=== PATIENT | female | born 1980 | race Caucasian/White ===

== ENCOUNTER 2021-11-05 06:52 | Day surgery (SDC) | payer MEDICARE, OTHER ==
[~2021-11-05] VITALS: Ht 172.7 cm; Wt 112.5 kg
[2021-11-05] VITALS (7 sets, daily range): BP systolic 119–151; BP diastolic 72–88
--- NOTE | 2021-11-05 08:47 | NUR ---
ARRIVAL PRESENTED TO ED RM#7 AMBULATORY WITH C/O BILATERAL FLANK PAIN. PAIN 5/10, RADIATES TO LOWER ABD. VS OBTAINED. DR. SALES NOTIFIED OF PATIENT ARRIVAL.
--- NOTE | 2021-11-05 09:32 | ER.PDOC ---
General Chief Complaint: Requesting Medical Care Stated Complaint: ABD PAIN Time seen by MD: 09:31 Source: patient Exam Limitations: no limitations History of Present Illness Initial Comments Left flank pain for 3 weeks. Patient was seen in a hospital in [place] and stent placed for ureteral stone. Severity/Quality: moderate, sharpness Radiation: LLQ Associated Symptoms: denies symptoms Exacerbated by: nothing Relieved By: nothing Past Medical History Medical History: no pertinent history Surgical History: no surgical history Family History Significant Family History: no pertinent family hx Social History Smoking: non-smoker Alcohol Use: none Drug Use: none Constitutional: no symptoms reported EENTM: no symptoms reported Respiratory: no symptoms reported Cardiovascular: no symptoms reported Gastrointestinal: see HPI Genitourinary: see HPI All Other Systems: Reviewed and Negative Physical Exam General Appearance: No Apparent Distress, WD/WN HEENT: PERRL/EOMI, Normal ENT Inspection, TMs Normal, Pharynx Normal Neck: Non-Tender, Full Range of Motion, Supple, Normal Inspection Respiratory: chest non-tender, lungs clear, normal breath sounds, no respiratory distress, no accessory muscle use Cardiovascular: Normal Peripheral Pulses, Regular Rate, Rhythm, No Edema, No Gallop, No JVD, No Murmur Gastrointestinal: Normal Bowel Sounds, No Organomegaly, No Pulsatile Mass, Guarding, Tenderness (LLQ) Back: Normal Inspection, No CVA Tenderness, No Vertebral Tenderness Extremities: Normal Range of Motion, Non-Tender, Normal Inspection, No Pedal Edema, No Calf Tenderness, Normal Capillary Refill, Pelvis Stable 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 (11/05/21 09:28) Urinalysis (11/05/21 09:28) Ct Abd/Pelvis Wo Iv Contrast (11/05/21 09:28) Covid19 Antigen Courtney Renuka (11/05/21 09:30) Hcg Urine (11/05/21 09:30) Ringer's Solution,Lactated (Lactated Rin (11/05/21 09:47) Levetiracetam 500mg/100 Nacl (Keppra) (11/05/21 09:47) Urine Culture (11/05/21 09:00) Laboratory Tests Test 11/05/21 09:00 White Blood Count 7.1 10^3/uL (4.5-11.0) Red Blood Count 4.46 10^6/uL (4.00-5.20) Hemoglobin 13.6 g/dL (12.0-15.0) Hematocrit 40.4 % (36.0-46.0) Mean Corpuscular Volume 90.6 fL (78-100) Mean Corpuscular Hemoglobin 30.5 pg (26-34) Mean Corpuscular Hemoglobin Concent 33.7 g/dL (33-36.5) Red Cell Distribution Width 11.9 % (11.5-14.5) Platelet Count 247 10^3/uL (150-400) Mean Platelet Volume 10.2 fL (7.8-11.0) Neutrophils (%) (Auto) 58.4 % (41.0-85.0) Lymphocytes (%) (Auto) 32.3 % (24.0-44.0) Monocytes (%) (Auto) 4.8 % (5.0-12.0) L Neutrophils # (Auto) 4.2 10^3/uL (1.8-7.7) Lymphocytes # (Auto) 2.30 10^3/uL1 (1.0-4.8) Monocytes # (Auto) 0.3 10^3/uL (0.3-0.8) Absolute Immature Granulocyte (auto 0.02 10^3 u/L (0-2) Absolute Eosinophils (auto) 0.2 10^3/uL (0.0-0.2) Immature Granulocytes % 0.30 % (0.00-0.50) Eosinophils % 3.4 % (0.0-5.0) Basophils % 0.8 % (0.0-0.2) H Basophils # 0.1 10^3/uL (0.0-0.1) Urine Collection Type RANDOM Urine Color YELLOW Urine Appearance CLOUDY Urine Bilirubin NEGATIVE (NEGATIVE) Urine Ketones NEGATIVE (NEGATIVE) Urine Specific Henrietta 1.015 (1.005-1.030) Urine pH 6.0 (4.5-8.0) Urine Protein NEGATIVE (NEGATIVE) Urine Urobilinogen 0.2 E.U./dL (0.2) Urine Nitrate NEGATIVE (NEGATIVE) Urine Leukocyte Esterase 1+ (NEGATIVE) H Urine Glucose (Auto)(UA) NEGATIVE (NEGATIVE) Urine Blood TRACE-INTACT (NEGATIVE) H Urine RBC 2-5 RBC/HPF (NONE SEEN) Urine WBC 5-10 WBC/HPF (0-2) H Urine Squamous Epithelial Cells MANY (<=FEW) Urine Calcium Oxalate Crystals FEW (NONE SEEN) A Urine Bacteria MANY (NONE SEEN) H Urine Yeast FEW (NONE SEEN) Urine HCG, Qualitative NEGATIVE (NEGATIVE) Progress Progress CT abd/pelvis: Left ureteral stent appears to be in good position, given the lima m hardening artifact limiting evaluation of pelvis. The multiple bilateral renal collecting system calculi, without hydronephrosis. ER DEPART Departure Time of Disposition: 10:05 Disposition: 09 ADMITTED INPATIENT Impression: Primary Impression: S/P ureteral stent placement Additional Impression: UTI (urinary tract infection) Condition: Stable Referrals: PCP,UNKNOWN (PCP) PRIMARY CARE PROVIDER Comments Patient taken to the OR by Dr. Sánchez Duration or Time Spent with Pa: 30 min Problem Qualifiers Additional Impression: UTI (urinary tract infection) Urinary tract infection type: site unspecified Hematuria presence: with hematuria Qualified Codes: N39.0 - Urinary tract infection, site not specified; R31.9 - Hematuria, unspecified MENDEZ SALES MD November 05, 2021 09:32
[2021-11-05 09:41] LABS: BILIRUBIN,URINE NEGATIVE (NEGATIVE); UROBILINOGEN,URINE 0.2 E.U./dL (0.2)
[2021-11-05] MEDS ORDERED: LACTATED RINGERS 1,000 ML ONE (09:47)
[2021-11-05] MEDS ORDERED: KEPPRA 100 ML IV ONE (09:47)
[2021-11-05 09:53] LABS: YEAST,URINE FEW (NONE SEEN)
--- NOTE | 2021-11-05 09:58 | DIREP ---
PROCEDURE:CT ABDOMEN/PELVIS W/O CONTRAST COMPARISON:None. INDICATIONS:Left flank pain TECHNIQUE:Axial images were created through the abdomen and pelvis without intravenous contrast material. No oral contrast was administered. Sagittal and coronal reconstructions were performed from source images. FINDINGS: LUNG BASES:Normal. No visible pulmonary or pleural disease. LIVER:Normal. No significant liver lesions are identified. BILIARY:Cholecystectomy PANCREAS:Normal. No lesion, fluid collection, ductal dilatation, or atrophy. SPLEEN:Normal. No enlargement or focal lesion. ADRENALS:Normal. No mass or enlargement. URINARY TRACT:No right-sided hydronephrosis. Multiple renal calculi, largest measuring 1.6 cm in size. Left ureteral stent in position, without hydronephrosis. There are multiple collecting system calculi, largest measuring 4-5 mm. The lower portion of the ureter is obscured by beam hardening artifact arising from bilateral total hip replacements. AORTA/VASCULAR:Normal. No aneurysm. RETROPERITONEUM:Normal. No mass or adenopathy. BOWEL/MESENTERY:Bariatric surgical changes. No free air. No evidence of bowel obstruction. No suspected abscess. ABDOMINAL WALL:Normal. No mass or hernia. PELVIC ORGANS:Normal. No visible mass. Pelvic organs appropriate for patient age. BONES:Normal for age. No bony lesion or acute fracture. OTHER:Negative. CONCLUSION:Left ureteral stent appears to be in good position, given the beam hardening artifact limiting evaluation of pelvis. The multiple bilateral renal collecting system calculi, without hydronephrosis. Dictated by: Claudy Seymour MD on 11/05/2021 at 09:53 AM
[2021-11-05] MEDS ORDERED: LACTATED RINGERS 1,000 ML IV SCH ×2 (10:00→12:30)
--- NOTE | 2021-11-05 10:00 | NUR ---
OR TRANSPORTED TO OR IN WHEELCHAIR BY OR STAFF.
[2021-11-05 10:01] LABS: BASOPHIL # 0.1 10^3/uL (0.0-0.1); BASOPHIL % 0.8 % (0.0-0.2); EOSINOPHIL # 0.2 10^3/uL (0.0-0.2); EOSINOPHIL % 3.4 % (0.0-5.0); LYMPHOCYTES % 32.3 % (24.0-44.0); MEAN CORP HGB 30.5 pg (26-34); MONOCYTES # 0.3 10^3/uL (0.3-0.8); MONOCYTES % 4.8 % (5.0-12.0); NEUTROPHIL # 4.2 10^3/uL (1.8-7.7); NEUTROPHILS % 58.4 % (41.0-85.0); PLATELET COUNT 247 10^3/uL (150-400); RED CELL DISTRIBUTION WIDTH 11.9 % (11.5-14.5)
[2021-11-05 10:26] LABS: CARBON DIOXIDE 28.7 mmol/L (20.0-32)
[2021-11-05] MEDS ORDERED: OMEP40CA8 PO (10:43)
[2021-11-05] MEDS ORDERED: LEVO75TA6 PO (10:43)
[2021-11-05] MEDS ORDERED: BUPR150T23 PO (10:43)
[2021-11-05] MEDS ORDERED: AMIT150T PO (10:43)
[2021-11-05] MEDS ORDERED: TIZA-113 PO (10:43)
[2021-11-05] MEDS ORDERED: TOPI100T8 PO (10:43)
[2021-11-05] MEDS ORDERED: [UNRECOGNIZED DRUG - OTHER] PO (10:43)
[2021-11-05] MEDS ORDERED: TRANSDERM-SCOP TD ONE ×2 (11:21→12:00)
[2021-11-05] MEDS ORDERED: ZOFRAN ONE (11:44)
[2021-11-05] MEDS ORDERED: XYLOCAINE 2% 5ML VIAL ONE (11:44)
[2021-11-05] MEDS ORDERED: DECADRON ONE (11:44)
[2021-11-05] MEDS ORDERED: SUBLIMAZE ONE (11:45)
[2021-11-05] MEDS ORDERED: DIPRIVAN IV ONE (11:45)
[2021-11-05] MEDS ORDERED: LASIX IV ONE (12:15)
[2021-11-05] MEDS ORDERED: LASIX ONE (12:21)
[2021-11-05] MEDS ORDERED: TAMS-14 PO (12:24)
[2021-11-05] MEDS ORDERED: TRAM50TA PO (12:24)
[2021-11-05] MEDS ORDERED: CIPR500T86 PO (12:24)
--- NOTE | 2021-11-05 12:54 | OPH ---
DATE OF SURGERY: 11/05/2021 DICTATOR NAME: Jose Sánchez MD PREOPERATIVE DIAGNOSIS: Left renal calculi. FINAL DIAGNOSIS: Left renal calculi. PROCEDURE: Left ESWL. DESCRIPTION OF PROCEDURE: The patient was brought to the lithotripsy room, was put in supine position on the lithotripsy table. A left preop renal ultrasound was initially performed, which revealed a calculi in the left kidney with an indwelling stent. After the patient was given an LMA general anesthesia and after localization of the stone with the use of fluoroscopy and renal ultrasound, a left ESWL was then performed using a Dornier Compact Delta II lithotripter. A total of 1500 shockwaves were delivered to the stones in the left kidney under ultrasound guidance. After fragmentation of the stone as noted in the ultrasound, the procedure was terminated. The patient was awakened, was transferred to the recovery room in stable condition. Jose Sánchez MD DR: KEVAN/THEODORA TID: [id number] RECEIPT: [id number]
== END 2021-11-05 13:35 | disposition home or self-care (01) ==
LOC: ER 06:52 → SDC 10:06
PROVIDERS: ATTEND Urology
DX: N20.0 Calculus of kidney (principal); R31.9 Hematuria, unspecified; N39.0 Urinary tract infection, site not specified; M19.90 Unspecified osteoarthritis, unspecified site; Z79.01 Long term (current) use of anticoagulants; Z98.890 Other specified postprocedural states; Z98.891 History of uterine scar from previous surgery; Z98.84 Bariatric surgery status; Z90.89 Acquired absence of other organs
CPT/HCPCS: 36415; 50590; 74176; 80053; 81001; 81025; 85025; 85610; 85730; 87086; 87426; 99285; J1100; J2001; J2405; J3010; J3490; J7120 ×2; J1940; J1953

== ENCOUNTER 2021-11-10 08:21 | Day surgery (SDC) | payer MEDICARE ==
[~2021-11-10] VITALS: Ht 172.7 cm; Wt 112.5 kg
[~2021-11-10 08:21] MED LIST: AMIT150T PO; BUPR150T23 PO; CIPR500T86 PO; D5W-1/2NS 1000ML 1,000 ML ONE; LEVAQUIN 100 ML IV ONE; LEVO75TA6 PO; NS 3000ML IRR IR ONE; OMEP40CA8 PO; TAMS-14 PO; TIZA-113 PO; TOPI100T8 PO; TRAM50TA PO; [UNRECOGNIZED DRUG - OTHER] PO
[2021-11-10] MEDS ORDERED: TRANSDERM-SCOP TD ONE ×2 (08:30→08:54)
[2021-11-10] MEDS ORDERED: D5NS 1,000 ML IV ONE (09:00)
[2021-11-10] MEDS ORDERED: DECADRON ONE (10:23)
[2021-11-10] MEDS ORDERED: ZOFRAN ONE (10:23)
[2021-11-10] MEDS ORDERED: TORADOL ONE (10:23)
[2021-11-10] MEDS ORDERED: XYLOCAINE 2% 5ML VIAL ONE (10:23)
[2021-11-10] MEDS ORDERED: DIPRIVAN IV ONE (10:24)
[2021-11-10] MEDS ORDERED: SUBLIMAZE ONE (10:24)
[2021-11-10 10:49] VITALS: BP 116/70
[2021-11-10 10:59] VITALS: BP 117/70
[2021-11-10] MEDS ORDERED: LACTATED RINGERS 1,000 ML IV SCH (11:00)
[2021-11-10 11:10] VITALS: BP 121/72
[2021-11-10 11:15] VITALS: BP 120/70
--- NOTE | 2021-11-10 14:21 | OPH ---
DATE OF SURGERY: 11/10/2021 DICTATOR NAME: Jose Sánchez MD PREOPERATIVE DIAGNOSIS: Left renal calculus with an indwelling stent, status post extracorporeal shock wave lithotripsy. FINAL DIAGNOSIS: Left renal calculus with an indwelling stent, status post extracorporeal shock wave lithotripsy. PROCEDURES: Cystoscopy, removal of left ureteral stent with left ureteroscopy. DESCRIPTION OF PROCEDURE: The patient was brought to the cystoscopy room, was put in supine position on the cystoscopy table. After the patient was given a satisfactory and adequate LMA general anesthesia, the patient was placed in the lithotomy position. Genitalia was then prepped and draped aseptically in the usual manner. First, 23-Andorran cystoscope inserted per urethra up to the bladder. With use of the right angle lens, the bladder was visualized. No tumor, no calculi, no ulcerations seen. There was a presence of left ureteral stent and this was removed and replaced with a Glidewire. The cystoscope was then removed and a 7-Andorran semirigid ureteroscope was inserted per urethra up to the bladder and inserted into the left ureteral orifice all the way to the kidney which revealed no evidence of ureteral stone; the ureteroscope and the Glidewire was then removed and the cystoscope was reinserted into the bladder. Bladder was emptied with fluid. Procedure was terminated. The instrument was removed. The patient was then awakened, was transferred to the recovery room in stable condition. Jose Sánchez MD DR: ROXANNA TID: [id number] RECEIPT: [id number] MTDD
--- NOTE | 2021-11-10 14:46 | DIREP ---
PROCEDURE:XRAY FLUOROSCOPY COMPARISON:None. INDICATIONS:STONE TECHNIQUE:Fluoroscopic assistance during removal of left ureteral stent. Five images. Fluoroscopy time less than 15 minutes. FINDINGS:Left ureteral stent removal. Bilateral hip arthroplasty screws. CONCLUSION:Left ureteral stent removal. Dictated by: Star Chase M.D. on 11/10/2021 at 01:26 PM Read in [place]
== END 2021-11-10 11:25 | disposition home or self-care (01) ==
LOC: SDC 08:21
PROVIDERS: ATTEND Urology
DX: Z46.6 Encounter for fitting and adjustment of urinary device (principal); N20.0 Calculus of kidney; M79.7 Fibromyalgia; E03.9 Hypothyroidism, unspecified; M05.40 Rheumatoid myopathy with rheumatoid arthritis of unspecified site; I25.10 Atherosclerotic heart disease of native coronary artery without angina pectoris; Z79.01 Long term (current) use of anticoagulants; Z79.899 Other long term (current) drug therapy; Z90.49 Acquired absence of other specified parts of digestive tract; Z98.84 Bariatric surgery status; Z98.890 Other specified postprocedural states
CPT/HCPCS: 52310; A4217; J1100; J1885; J1956; J2001; J2405; J3010; J3490; 76000; C1769

== ENCOUNTER 2021-11-26 06:24 | Day surgery (SDC) | payer MEDICARE ==
[~2021-11-26] VITALS: Ht 172.7 cm; Wt 112.5 kg
[~2021-11-26 06:24] MED LIST changes: -D5W-1/2NS 1000ML 1,000 ML ONE; +LASIX IV ONE; -LEVAQUIN 100 ML IV ONE; +NS 1000ML 1,000 ML IV SCH; +NS 1000ML 1,000 ML ONE; -NS 3000ML IRR IR ONE
[2021-11-26] MEDS ORDERED: TRANSDERM-SCOP TD ONE (07:15)
[2021-11-26] MEDS ORDERED: ZOFRAN ONE (07:31)
[2021-11-26] MEDS ORDERED: LIDOCAINE 1% VIAL ONE (07:31)
[2021-11-26] MEDS ORDERED: DECADRON ONE (07:32)
[2021-11-26] MEDS ORDERED: SUBLIMAZE ONE (07:32)
[2021-11-26] MEDS ORDERED: DIPRIVAN IV ONE (07:33)
[2021-11-26] MEDS ORDERED: LASIX ONE (08:25)
[2021-11-26 08:51] VITALS: BP 144/80
[2021-11-26] MEDS ORDERED: LACTATED RINGERS 1,000 ML ONE (08:53)
[2021-11-26 09:00] VITALS: BP 131/77
[2021-11-26] MEDS ORDERED: LACTATED RINGERS 1,000 ML IV SCH (09:00)
[2021-11-26 09:10] VITALS: BP 128/69
[2021-11-26 09:20] VITALS: BP 126/70
[2021-11-26 09:21] VITALS: BP 119/73
[2021-11-26 09:35] VITALS: BP 122/66
--- NOTE | 2021-11-26 11:54 | OPH ---
DATE OF SURGERY: 11/26/2021 DICTATOR NAME: Jose Sánchez MD PREOPERATIVE DIAGNOSIS: Right renal calculi. FINAL DIAGNOSIS: Right renal calculi. PROCEDURE: Right ESWL. DESCRIPTION OF PROCEDURE: The patient was brought to the lithotripsy room, was put in supine position on the lithotripsy table. A preoperative right renal ultrasound was initially performed, which revealed 2 large stones in the lower pole of the right kidney, measuring 1.14 cm and 1.62 cm in diameter respectively. There is no evidence of hydronephrosis or obstruction. After the patient was given an LMA general anesthesia and after localization of the stone with the use of an ultrasound and fluoroscopy, a right ESWL was then performed using a Dornier Compact Delta II lithotripter. A total of 2500 shockwaves were delivered to the stones in the lower pole of the right kidney under ultrasound guidance. After fragmentation of the stone as noted in the ultrasound and fluoroscopy, the procedure was terminated. The patient was awakened, was transferred to the recovery room in stable condition. Jose Sánchez MD DR: KEVAN/MARTHA TID: [id number] RECEIPT: [id number]
[2021-12-01] MEDS ORDERED: TRAM50TA PO (15:30)
[2021-12-01] MEDS ORDERED: CIPR500T86 PO (15:30)
== END 2021-11-26 10:00 | disposition home or self-care (01) ==
LOC: SDC 06:24
PROVIDERS: ATTEND Urology
DX: N20.0 Calculus of kidney (principal); M79.7 Fibromyalgia; K21.9 Gastro-esophageal reflux disease without esophagitis; E03.9 Hypothyroidism, unspecified; M05.40 Rheumatoid myopathy with rheumatoid arthritis of unspecified site; Z98.890 Other specified postprocedural states; Z95.0 Presence of cardiac pacemaker; Z90.49 Acquired absence of other specified parts of digestive tract; Z98.84 Bariatric surgery status
CPT/HCPCS: 50590; 81025; J1100; J2001; J2405; J3010; J3490; J7030; J7120; J1940

== ENCOUNTER → 2021-12-01 | Day surgery (SDC) | payer MEDICARE ==
[~2021-12-01] VITALS: Ht 172.7 cm; Wt 117.9 kg
[~2021-12-01] MED LIST changes: +DECADRON ONE; +DIPRIVAN IV ONE; +LACTATED RINGERS 1,000 ML IV SCH; +LACTATED RINGERS 1,000 ML ONE; -LASIX IV ONE; +LEVAQUIN 100 ML IV ONE; -NS 1000ML 1,000 ML ONE; +NS 3000ML IRR IR ONE; +SODIUM CHLORIDE IRR BOTTLE IR ONE; +SUBLIMAZE ONE; +TORADOL IV STA; +TORADOL ONE; +ZOFRAN IV STA; +ZOFRAN ONE
[2021-12-01 13:43] LABS: BASOPHIL % 0.5 % (0.0-0.2); EOSINOPHIL # 0.1 10^3/uL (0.0-0.2); EOSINOPHIL % 2.1 % (0.0-5.0); LYMPHOCYTES # 0.98 10^3/uL1 (1.0-4.8); LYMPHOCYTES % 14.8 % (24.0-44.0); MEAN CORP HGB 30.4 pg (26-34); MONOCYTES # 0.3 10^3/uL (0.3-0.8); MONOCYTES % 3.8 % (5.0-12.0); NEUTROPHIL # 5.2 10^3/uL (1.8-7.7); NEUTROPHILS % 78.3 % (41.0-85.0); PLATELET COUNT 225 10^3/uL (150-400)
[2021-12-01 13:46] VITALS: BP 125/71
--- NOTE | 2021-12-01 13:56 | NUR ---
Ambulatory to ED4. A/O, able to communicate needs, follows commands. Pt sent by Dr. Liriano for eval due to Rflank pain with recent history of multiple kidney stone with interventions required.Pt rates pain 5/10 to R flank, described as sharp, constant.
--- NOTE | 2021-12-01 14:44 | ER.PDOC ---
General Chief Complaint: Requesting Medical Care Stated Complaint: KIDNEY PAIN Time seen by MD: 14:40 Source: patient Exam Limitations: no limitations History of Present Illness Initial Comments Right flank pain for the last few days. She had a kidney stone blasted in the right kidney and is having right flank pain from a piece of stone in the right ureter. Severity/Quality: moderate, sharpness Radiation: no radiation Associated Symptoms: denies symptoms Exacerbated by: nothing Relieved By: nothing Allergies: Coded Allergies: No Known Allergies (Unverified , 11/05/21) Home Meds Active Scripts Tramadol Hcl (TRAMADOL HCL) 50 Mg Tablet, 50 MG PO Q6 PRN for PAIN, #20 TABLET Prov:LELA VILLELA MD 11/05/21 Tamsulosin Hcl (FLOMAX) 0.4 Mg Cap.er.24h, 0.4 MG PO DAILY24, #20 CAPSULE Prov:LELA VILLELA MD 11/05/21 Reported Medications [Bariatic Vitamin] No Conflict Check, 1 MG PO DAILY24 11/05/21 Omeprazole (OMEPRAZOLE) 40 Mg Capsule.dr, 1 CAP PO DAILY, #30 CAP 3 Refills 11/05/21 Amitriptyline Hcl (AMITRIPTYLINE HCL) 150 Mg Tablet, 1 TAB PO HS, #30 TAB 1 Refill 11/05/21 Levothyroxine Sodium (LEVOTHYROXINE SODIUM) 75 Mcg Tablet, 1 TAB PO DAILY, #30 TAB 5 Refills 11/05/21 Topiramate (TOPIRAMATE) 100 Mg Tablet, 1 TAB PO BID for 30 Days, #60 TAB 0 Refills 11/05/21 Tizanidine Hcl (TIZANIDINE HCL) 4 Mg Tablet, 1 TAB PO TID, #90 TAB 11/05/21 Bupropion Hcl (BUPROPION XL) 150 Mg Tab.er.24h, 1 TAB PO BID, #30 TAB 11/05/21 Discontinued Scripts Ciprofloxacin Hcl (CIPRO) 500 Mg Tablet, 500 MG PO BID, #14 Prov:LELA VILLELA MD 11/05/21 Vital Signs First Vital Signs Date Time Temp Pulse Resp B/P (MAP) Pulse Ox O2 Delivery O2 Flow Rate FiO2 12/01/21 13:46 98.3 95 18 99 12/01/21 13:46 Room Air* 0 21 Last Vital Signs Date Time Temp Pulse Resp B/P (MAP) Pulse Ox O2 Delivery O2 Flow Rate FiO2 12/01/21 13:46 98.3 95 18 12/01/21 13:46 99 Room Air* 0 21 Past Medical History Medical History: other Surgical History: , hip, tonsillectomy, other Family History Significant Family History: no pertinent family hx Social History Smoking: non-smoker Alcohol Use: none Drug Use: none Constitutional: no symptoms reported EENTM: no symptoms reported Respiratory: no symptoms reported Cardiovascular: no symptoms reported Gastrointestinal: no symptoms reported Genitourinary: see HPI All Other Systems: Reviewed and Negative Physical Exam General Appearance: No Apparent Distress, WD/WN HEENT: PERRL/EOMI, Normal ENT Inspection, TMs Normal, Pharynx Normal Neck: Non-Tender, Full Range of Motion, Supple, Normal Inspection Respiratory: chest non-tender, lungs clear, normal breath sounds, no respiratory distress, no accessory muscle use Cardiovascular: Normal Peripheral Pulses, Regular Rate, Rhythm, No Edema, No Gallop, No JVD, No Murmur Gastrointestinal: Normal Bowel Sounds, No Organomegaly, No Pulsatile Mass, Tenderness (RLQ) Back: Normal Inspection, No CVA Tenderness, No Vertebral Tenderness Extremities: Normal Range of Motion, Non-Tender, Normal Inspection, No Pedal Edema, No Calf Tenderness, Normal Capillary Refill, Pelvis Stable 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, No Motor/Sensory Deficits, Alert, Normal Mood/Affect, Oriented x 3 Skin: Normal Color, Warm/Dry Lymphatic: No Adenopathy Results/Orders Results/Orders Orders - MENDEZ SALES MD Cbc With Auto Diff (12/01/21 13:23) Vital Signs Date Time Temp Pulse Resp B/P (MAP) Pulse Ox O2 Delivery O2 Flow Rate FiO2 12/01/21 13:46 98.3 95 18 12/01/21 13:46 98.3 95 18 99 Room Air* 0 21 12/01/21 13:46 98.3 95 18 99 Laboratory Tests Test 12/01/21 13:37 White Blood Count 6.6 10^3/uL (4.5-11.0) Red Blood Count 4.14 10^6/uL (4.00-5.20) Hemoglobin 12.6 g/dL (12.0-15.0) Hematocrit 38.9 % (36.0-46.0) Mean Corpuscular Volume 94.0 fL (78-100) Mean Corpuscular Hemoglobin 30.4 pg (26-34) Mean Corpuscular Hemoglobin Concent 32.4 g/dL (33-36.5) L Red Cell Distribution Width 13.0 % (11.5-14.5) Platelet Count 225 10^3/uL (150-400) Mean Platelet Volume 10.2 fL (7.8-11.0) Neutrophils (%) (Auto) 78.3 % (41.0-85.0) Lymphocytes (%) (Auto) 14.8 % (24.0-44.0) L Monocytes (%) (Auto) 3.8 % (5.0-12.0) L Neutrophils # (Auto) 5.2 10^3/uL (1.8-7.7) Lymphocytes # (Auto) 0.98 10^3/uL1 (1.0-4.8) L Monocytes # (Auto) 0.3 10^3/uL (0.3-0.8) Absolute Immature Granulocyte (auto 0.03 10^3 u/L (0-2) Absolute Eosinophils (auto) 0.1 10^3/uL (0.0-0.2) Immature Granulocytes % 0.50 % (0.00-0.50) Eosinophils % 2.1 % (0.0-5.0) Basophils % 0.5 % (0.0-0.2) H Basophils # 0.0 10^3/uL (0.0-0.1) ER DEPART Departure Time of Disposition: 14:43 Disposition: 09 ADMITTED INPATIENT Impression: Primary Impression: Ureteral calculus, right Additional Impression: Renal colic on right side Condition: Stable Referrals: PCP,UNKNOWN (PCP) PRIMARY CARE PROVIDER Comments Patient taken to the OR by Dr. Villela Duration or Time Spent with Pa: 10 min Problem Qualifiers MENDEZ SALES MD Dec 01, 2021 14:44
[2021-12-01 15:22] VITALS: BP 134/81
[2021-12-01 15:35] VITALS: BP 133/79
[2021-12-01 15:40] VITALS: BP 128/79
[2021-12-01 15:50] VITALS: BP 116/61
--- NOTE | 2021-12-01 16:06 | OPH ---
DATE OF SURGERY: 12/01/2021 DICTATOR NAME: Jose Sánchez MD PREOPERATIVE DIAGNOSIS: Calculus, right proximal ureter with hydronephrosis. FINAL DIAGNOSIS: Calculus, right proximal ureter with hydronephrosis. PROCEDURE: Cystoscopy, right retrograde with insertion of double-J ureteral stent. DESCRIPTION OF PROCEDURE: The patient was brought to the cystoscopy room, was put in supine position on the cystoscopy table. After the patient was given a satisfactory and adequate LMA general anesthesia, the patient was placed in the lithotomy position. The genitalia were then prepped and draped aseptically in the usual manner. First, a 23-Senegalese cystoscope was inserted per urethra up to the bladder. With use of the right angle lens, the bladder was visualized. There is no tumor, no calculi, no ulcerations seen. Both ureteral orifices were normal. Initial right retrograde was done by inserting a 7-Senegalese ureteral catheter at the right ureteral orifice and injected with Omnipaque dye and it showed a large calculus in the right proximal ureter. After that, the ureteral catheter was then removed and a double-J right ureteral stent was inserted through the Glidewire from the right ureteral orifice all the way to the right kidney. After the proper placement of the ureteral stent, the Glidewire was removed. The bladder was emptied with fluid. The instrument was removed and the patient was then awakened, was transferred to the recovery room in stable condition. Jose Sánchez MD DR: FARZANA TID: [id number] RECEIPT: [id number]
--- NOTE | 2021-12-01 19:25 | DIREP ---
PROCEDURE:XRAY UROGRAPHY RETROGRADE COMPARISON:None. INDICATIONS:RT RENAL CALCULI,11 IMAGES,165.1 SEC FLUORO,91.08 MgY TECHNIQUE:11 fluoroscopic images are submitted from the OR. Total fluoroscopy time is 1:00 a.m. 65.1 seconds. FINDINGS:No filling defects in the right ureter. Final images demonstrate a stent catheter from the right renal pelvis to the bladder. Incidentally noted is bilateral total hip arthroplasty. CONCLUSION:Ureteral stent catheter in place from the renal pelvis to the bladder. Dictated by: Nuno Ponce M.D. on 12/01/2021 at 07:23 PM
== END | disposition home or self-care (01) ==
LOC: ER 13:01 → SDC 13:59
PROVIDERS: ATTEND Family Medicine
DX: N13.2 Hydronephrosis with renal and ureteral calculous obstruction (principal); Z90.89 Acquired absence of other organs; Z98.891 History of uterine scar from previous surgery; Z79.899 Other long term (current) drug therapy; Z79.890 Hormone replacement therapy
CPT/HCPCS: 36415; 52332; 74420; 85025; 99285; A4217 ×2; J1100; J1885; J2405; J3010; J3490; J7030; J7120; 76000; C1758; C1769; C2617; Q9965

== ENCOUNTER 2021-12-10 06:29 | Day surgery (SDC) | payer MEDICARE ==
[~2021-12-10] VITALS: Ht 172.7 cm; Wt 112.5 kg
[2021-12-10] VITALS (7 sets, daily range): BP systolic 110–133; BP diastolic 67–75
[~2021-12-10 06:29] MED LIST changes: -DECADRON ONE; -DIPRIVAN IV ONE; -LACTATED RINGERS 1,000 ML IV SCH; -LACTATED RINGERS 1,000 ML ONE; -NS 1000ML 1,000 ML IV SCH; +NS 1000ML 1,000 ML ONE; -NS 3000ML IRR IR ONE; -SODIUM CHLORIDE IRR BOTTLE IR ONE; -SUBLIMAZE ONE; -TORADOL IV STA; -TORADOL ONE; -ZOFRAN IV STA; -ZOFRAN ONE
[2021-12-10] MEDS ORDERED: NS 1000ML 1,000 ML IV SCH (06:30)
[2021-12-10] MEDS ORDERED: TRANSDERM-SCOP TD ONE ×2 (07:07→07:08)
[2021-12-10] MEDS ORDERED: LIDOCAINE 1% VIAL ONE (07:38)
[2021-12-10] MEDS ORDERED: DECADRON ONE (07:39)
[2021-12-10] MEDS ORDERED: SUBLIMAZE ONE (07:39)
[2021-12-10] MEDS ORDERED: ZOFRAN ONE (07:39)
[2021-12-10] MEDS ORDERED: DIPRIVAN IV ONE (07:39)
[2021-12-10] MEDS ORDERED: LASIX ONE (07:46)
[2021-12-10] MEDS ORDERED: LASIX IV ONE (08:00)
[2021-12-10] MEDS ORDERED: LACTATED RINGERS 1,000 ML IV SCH (09:00)
--- NOTE | 2021-12-10 09:08 | OPH ---
DATE OF SURGERY: 12/10/2021 DICTATOR NAME: Jose Sánchez MD PREOPERATIVE DIAGNOSIS: Large multiple calculi, right kidney and proximal ureter. FINAL DIAGNOSIS: Large multiple calculi, right kidney and proximal ureter. PROCEDURE: Right ESWL. DESCRIPTION OF PROCEDURE: The patient was brought to the lithotripsy room, was put in supine position on the lithotripsy table. A preoperative KUB was initially performed, which revealed a calculus in the right proximal ureter and another calculus in the right ureteropelvic junction and calculi also in the middle and lower pole of the right kidney with an indwelling right ureteral stent. After the patient was given a satisfactory and adequate LMA general anesthesia and after localization of the stone with the use of fluoroscopy and ultrasound, right ESWL was then performed using a Dornier Compact Delta II lithotripter. A total of 2500 shockwaves were delivered to the stones in the right proximal ureter and also in the right ureteropelvic junction. After fragmentation of the stone as noted in the fluoroscopy and ultrasound, procedure was terminated. The patient was awakened, was transferred to the recovery room in stable condition. Jose Sánchez MD DR: YULISSA TID: [id number] RECEIPT: [id number]
--- NOTE | 2021-12-10 12:26 | DIREP ---
PROCEDURE:XRAY ABDOMEN SINGLE VW COMPARISON:[facility], CR, XRAY UROGRAPHY RETROGRADE, 12/01/2021, 03:03 PM. INDICATIONS:PRE ESWL FINDINGS: BOWEL GAS PATTERN:Normal. CALCIFICATIONS:Multiple right renal calculi and right proximal ureteral stone. LUNG BASES:Clear. BONES:Bilateral total hip arthroplasty. OTHER:Right double pigtail ureteral stent with the proximal loop at T12 and distal loop overlying the urinary bladder. CONCLUSION:Right double pigtail ureteral stent multiple renal and ureteral stones. Dictated by: Aleja Chaudhari MD on 12/10/2021 at 12:22 PM
== END 2021-12-10 09:40 | disposition home or self-care (01) ==
LOC: SDC 06:29
PROVIDERS: ATTEND Urology
DX: N20.2 Calculus of kidney with calculus of ureter (principal); M79.7 Fibromyalgia; E03.9 Hypothyroidism, unspecified; M05.40 Rheumatoid myopathy with rheumatoid arthritis of unspecified site; Z90.49 Acquired absence of other specified parts of digestive tract; Z98.890 Other specified postprocedural states; Z98.84 Bariatric surgery status; Z79.890 Hormone replacement therapy
CPT/HCPCS: 50590; 74018; 81025; J1100; J1956; J2001; J2405; J3010; J3490; J7030 ×2; J1940

== ENCOUNTER 2021-12-24 06:14 | Day surgery (SDC) | payer MEDICARE ==
[~2021-12-24] VITALS: Ht 172.7 cm; Wt 112.5 kg
[~2021-12-24 06:14] MED LIST changes: -NS 1000ML 1,000 ML ONE
[2021-12-24] MEDS ORDERED: LACTATED RINGERS 1,000 ML IV SCH ×2 (06:30→09:30)
[2021-12-24 06:33] VITALS: BP 132/71
[2021-12-24] MEDS ORDERED: SODIUM CHLORIDE IRR BOTTLE IR ONE (07:23)
[2021-12-24] MEDS ORDERED: NS 3000ML IRR IR ONE (07:23)
[2021-12-24] MEDS ORDERED: TRANSDERM-SCOP TD STA (07:30)
[2021-12-24] MEDS ORDERED: TRANSDERM-SCOP TD ONE (07:32)
[2021-12-24] MEDS ORDERED: PEPCID IV ONE (07:33)
[2021-12-24] MEDS ORDERED: SUBLIMAZE ONE (07:41)
[2021-12-24] MEDS ORDERED: DECADRON ONE (07:41)
[2021-12-24] MEDS ORDERED: ZOFRAN ONE (07:41)
[2021-12-24] MEDS ORDERED: DIPRIVAN IV ONE (07:41)
[2021-12-24] MEDS ORDERED: TORADOL ONE (07:41)
[2021-12-24 09:20] VITALS: BP 132/70
[2021-12-24 09:27] VITALS: BP 125/84
[2021-12-24] MEDS ORDERED: TAMS-14 PO (09:33)
[2021-12-24] MEDS ORDERED: CIPR500T86 PO (09:33)
[2021-12-24 09:40] VITALS: BP 132/83
--- NOTE | 2021-12-24 09:40 | OPH ---
DATE OF SURGERY: 12/24/2021 DICTATOR NAME: Jose Sánchez MD PREOPERATIVE DIAGNOSIS: Multiple calculi, right proximal ureter with an indwelling stent. FINAL DIAGNOSIS: Multiple calculi, right proximal ureter with an indwelling stent. PROCEDURE: Cystoscopy, removal of right ureteral stent, right ureteroscopy with basket stone extraction of multiple calculi in the right proximal ureter and with reinsertion of a double-J right ureteral stent. DESCRIPTION OF PROCEDURE: The patient was brought to the cystoscopy room, was put in supine position on the cystoscopy table. After the patient was given a satisfactory and adequate LMA general anesthesia, the patient was placed in the lithotomy position. The genitalia was then prepped and draped aseptically in the usual manner. First, a 23-Welsh cystoscope was inserted per urethra up to the bladder. With use of the right angle lens, the bladder was visualized. There is some congestion noted. There was presence of stent in the right ureteral orifice and the left ureteral orifice is normal. First, the right ureteral stent was then removed and replaced with a Glidewire and after that, the cystoscope was removed and a 7-Welsh semirigid ureteroscope was inserted per urethra up to the right ureteral orifice all the way to the proximal ureter and it revealed multiple calculi in the right proximal ureter. A basket stone extraction was then performed. After this was done, the ureteroscope was removed and because of the multiple procedure for the removal of the stone there was too much congestion noted in the ureter. A 6-Welsh ureteral stent was then reinserted from the right ureteral orifice all the way to the right kidney. After the position was confirmed, the Glidewire was removed and then a cystoscope was reinserted into the bladder and the bladder was emptied with fluid. Procedure was terminated. The instrument was removed. The patient was then awakened, was transferred to the recovery room in stable condition. Jose Sánchez MD DR: YULISSA REDMOND: [id number] RECEIPT: [id number]
[2021-12-24 09:51] VITALS: BP 134/89
[2021-12-24 10:01] VITALS: BP 148/97
--- NOTE | 2021-12-24 15:37 | DIREP ---
PROCEDURE:XRAY FLUOROSCOPY COMPARISON:[facility], , XRAY FLUOROSCOPY, 11/10/2021, 10:42 AM. INDICATIONS:INTRAOPERATIVE CYSTO TECHNIQUE:Intraoperative fluoroscopy FINDINGS: Fluoro time: 406.9 seconds. Images: 13. Right ureteral stent exchange. Bilateral hip arthroplasties are not completely included within the field of view. No unexpected surgical instrument on the provided images. CONCLUSION: 1. Intraoperative fluoroscopy for retrograde urography. 2. Right ureteral stent exchange. Dictated by: Marizol Lujan MD on 12/24/2021 at 03:35 PM
== END 2021-12-24 10:05 | disposition home or self-care (01) ==
LOC: SDC 06:14
PROVIDERS: ATTEND Urology
DX: N20.1 Calculus of ureter (principal); K21.9 Gastro-esophageal reflux disease without esophagitis; M06.9 Rheumatoid arthritis, unspecified; M79.7 Fibromyalgia; Z90.49 Acquired absence of other specified parts of digestive tract; Z98.890 Other specified postprocedural states; Z98.84 Bariatric surgery status
CPT/HCPCS: 52332; 82360; A4217 ×2; J1100; J3490 ×2; J1956; J2405; J1885; J3010; 76000; J7120; C1769; C1894; C2617